=== PATIENT | female | born 1950 | race American Indian/Alaskan Native ===

== ENCOUNTER 2018-01-23 09:32 | Outpatient (CLI) | payer OTHER ==
--- NOTE | 2018-01-23 15:22 | Mammography Report ---
BILATERAL DIGITAL SCREENING MAMMOGRAM with CAD: 01/23/18 09:32:00 CLINICAL: Routine screening. COMPARISON: 11/21/15 FINDINGS: There are bilateral scattered areas of fibroglandular density.No mass, architectural distortion or suspicious calcifications. IMPRESSION: No mammographic evidence of malignancy. BI-RADS CATEGORY: 1 -- Negative RECOMMENDATION: Routine mammographic screening in one year. COMMENT: Patient follow-up letters are generated by our [employer] application.
== END 2018-01-23 09:33 | disposition home or self-care (01) ==
LOC: MAMMO 09:32
PROVIDERS: ATTEND Internal Medicine
DX: Z12.31 Encounter for screening mammogram for malignant neoplasm of breast (principal); I10 Essential (primary) hypertension; I25.10 Atherosclerotic heart disease of native coronary artery without angina pectoris; K21.9 Gastro-esophageal reflux disease without esophagitis; M19.90 Unspecified osteoarthritis, unspecified site; E03.9 Hypothyroidism, unspecified; Z90.49 Acquired absence of other specified parts of digestive tract; Z90.710 Acquired absence of both cervix and uterus; Z90.721 Acquired absence of ovaries, unilateral
CPT/HCPCS: 77067

== ENCOUNTER 2018-11-26 14:23 | Inpatient (IN) | payer OTHER ==
--- NOTE | 2018-11-26 14:37 | Event Note ---
ED Screening Note ED Screening Note: TO ER WITH FAMILY STATING THAT SINCE 0930 PT HAS HAD TROUBLE SPEAKING. LAST NIGHT PT HAD HEADACHE SHE HAD BEEN UP WITH HER NUMEROUS TIMES DURING NIGHT TO URINATE ALL OF THOSE TIMES THE PT WAS HER NORMAL SELF AT 0930 SHE GOT GARBLED SPEECH AND TROUBLE SPEAKING IN TRIAGE SHE HAS L SIDED WEAKNESS KENDAL NOTED ON SHOULDER SHRUG AND POS PRONATOR PT IS IN WHEELCHAIR NO EXPRESSIVE OR RECEPTIVE APHASIA PERRL This initial assessment/diagnostic orders/clinical plan/treatment(s) is/are subject to change based on patients health status, clinical progression and re- assessment by fellow clinical providers in the ED. Further treatment and workup at subsequent clinical providers discretion. Patient/guardian urged not to elope from the ED as their condition may be serious if not clinically assessed and managed. Initial orders include: STROKE ALERT PMH HTN GERD OBESE
--- NOTE | 2018-11-26 15:05 | Cat Scan Report ---
CT head without contrast CLINICAL HISTORY: Cerebrovascular accident FINDINGS: The brain appears to demonstrate appropriate attenuation for age. The ventricular system is within normal limits in size and configuration. There is mild degree of cerebral atrophy. There is n o CT evidence of acute intracranial hemorrhage or significant mass effect. There is incidental small osteoma within the visualized left ethmoid sinus. Otherwise, the visualized paranasal sinuses are clear. All CT scans at this location are performed using the CT dose reduction for [employer] by means of automated exposure control. IMPRESSION: There is no CT evidence of acute intracranial process. The findings were called emergently to the ER physician at the time the study was completed per the c ode stroke protocol. Signer Name: Sheng Sarmiento MD Signed: 11/26/2018 3:01 PM Workstation Name: [id number]
--- NOTE | 2018-11-26 15:10 | Emergency Department Report ---
ED Neuro Deficit HPI - General Chief Complaint: Neuro Symptoms/Deficit Stated Complaint: SLURR SPEECH/HEAD ACHE Time Seen by Provider: 11/26/18 14:30 Source: patient, family Mode of arrival: Wheelchair Limitations: No Limitations - History of Present Illness Initial Comments: [facility] Tele[facility]urology Consult Services DATE: November 26, 2018 Impression: Transient slurred speech dizziness headache-could be migrainous versus transient ischemic attack. The patient does have multiple vascular risk factors. Recommend aspirin therapy and admission for stroke/toxic metabolic workup. Can treat headache with non-vasoactive headache medications. Not a tpa candidate due to: Resolution of symptoms Symptoms (not) consistent with LVO therefore no role for neuro-intervention Differential Diagnosis: Migrainous phenomenon, TIA, toxic metabolic 1. Cardioembolic stroke 2. Small vessel disease/lacune 3. Thromboembolic, syucfs-kk-ushoci mechanism 4. Hypercoagulable state-related infarct 5. Transient ischemic attack 6. Thrombotic mechanism, large artery disease Comments: Last known normal 06:30 Door time 14:23 [facility] contacted: 14:31 [facility] at bedside: 14:34 NIHSS assessment time: 14:40 Recommendations: -Aspirin therapy -Admitted for TIA/stroke workup -Can treat headache with non-vasoactive headache medications Inpatient neurology consultation Inpatient stroke evaluation as per Neurology/ Internal Medicine Discussed with ED MD Please call with questions CC slurred speech headache dizziness History of Present Illness Patient is a 68-year-old woman with a history of prior myocardial infarction, hypertension, asthma, hypothyroidism who doesn't take any antiplatelets and she takes meloxicam and some other medications for osteoarthritis. It sounds like she's had a headache for a day or so and she woke up at 6:30 AM still with a hea dache but went back to bed. She then woke up at 9:30 in the morning and felt dizzy and weak all over and nauseated. She also felt like her speech was slurred. She denies having these symptoms before. She denies any focal weakness numbness or tingling. Diagnostic: CT head without contrast no acute changes Exam: 1a- LOC: Keenly responsive - =0 1b- LOC questions: Answers both questions correctly - 0 1c- LOC commands- Performs both tasks correctly- 0 2- Gaze: Normal; no gaze paresis or gaze deviation - 0 3- Visual Edwards: normal, no Visual field deficit - 0 4- Facial movements: no facial palsy - 0 5- Upper limb motor - no drift -0 6- Lower limb motor - no drift - 0 7- Limb Coordination: absent ataxia - 0 8- Sensory : no sensory loss - 0 9- Language - No aphasia - 0 10- Speech - No dysarthria -0 11- Neglect / Extinction - none found -0 NIHSS score =0 Medical Decision Making: - Extensive number of diagnosis or management options are considered above. - Extensive amount of complex data reviewed. - High risk of complication and/or morbidity or mortality are associated with differential diagnostic considerations above. - There may be Uncertain outcome and increased probability of prolonged functional impairment or high probability of severe prolonged functional impairment associated with some of these differential diagnosis. Medical Data Reviewed: 1.Data reviewed include clinical labs, radiology, Medical Tests; 2.Tests results discussed w/performing or interpreting physician; 3.Obtaining/reviewing old medical records; 4.Obtaining case history from another source; 5.Independent review of image, tracing or specimen. Patient was informed the Neurology Consult would happen via telehealth (remote video) and consented to receiving care in this manner. - Related Data Home Medications: Home Medications Medication Instructions Recorded Confirmed Last Taken Amlodipine Besylate [Norvasc] 10 mg PO DAILY 04/27/13 04/27/13 04/26/13 09:[address] (Nf) [Diclofenac 50 mg PO BID 04/27/13 04/27/13 04/23/13 21:00 Sodium] 50mg Levothyroxine [Synthroid] 112 mcg PO DAILY 04/27/13 04/27/13 04/26/13 09:00 112 mcg Omeprazole [PriLOSEC] 20 mg PO HS 04/27/13 04/27/13 04/26/13 21:30 mg Sertraline HCl 100 mg PO HS 04/27/13 04/27/13 04/26/13 21:00 100mg Vit D3-Vit K/Berberine/Hops 1,000 units PO DAILY 04/27/13 04/27/13 04/26/13 09:00 [Ostera Tablet] 1000units Allergies/Adverse Reactions: Allergies Allergy/AdvReac Type Severity Reaction Status Date / Time lisinopril AdvReac Severe COUGHING Verified 04/27/13 10:02 indomethacin [From Indocin] AdvReac Intermediate IRREGULAR Verified 04/27/13 10:02 HEART RATE indomethacin sodium AdvReac Intermediate IRREGULAR Verified 04/27/13 10:02 [From Indocin] HEART RATE venom-honey bee AdvReac Swelling Verified 04/27/13 10:02 [bee venom (honey bee)] ED Review of Systems ROS: Stated complaint: SLURR SPEECH/HEAD ACHE Other details as noted in HPI ED Past Medical Hx - Past Medical History Previous Medical History?: Yes Hx Hypertension: Yes Hx Heart Attack/AMI: Yes Hx Congestive Heart Failure: No Hx GERD: Yes Hx Renal Disease: Yes Hx Arthritis: Yes Hx HIV: No - Surgical History Past Surgical History?: Yes Hx Cholecystectomy: Yes (2012) - Social History Smoking Status: Never Smoker - Medications Home Medications: Home Medications Medication Instructions Recorded Confirmed Last Taken Type Amlodipine Besylate [Norvasc] 10 mg PO DAILY 04/27/13 04/27/13 04/26/13 09:[address] (Nf) [Diclofenac 50 mg PO BID 04/27/13 04/27/13 04/23/13 21:00 History Sodium] 50mg Levothyroxine [Synthroid] 112 mcg PO DAILY 04/27/13 04/27/13 04/26/13 09:00 History 112 mcg Omeprazole [PriLOSEC] 20 mg PO HS 04/27/13 04/27/13 04/26/13 21:30 History mg Sertraline HCl 100 mg PO HS 04/27/13 04/27/13 04/26/13 21:00 History 100mg Vit D3-Vit K/Berberine/Hops 1,000 units PO DAILY 04/27/13 04/27/13 04/26/13 09:00 History [Ostera Tablet] 1000units ED Neuro Physical Exam - General Limitations: No Limitations Suspected Stroke: Yes - NIHSS Assessment Interval: Baseline 1a. Level of Consciousness: alert/keenly responsive 1b. LOC Questions: answers both correctly 1c. LOC Commands: performs tasks correctly 2. Best Gaze: normal 3. Visual: no visual loss 4. Facial Palsy: normal symmetrical movement 5b. Motor Arm Right: no drift 5a. Motor Arm Left: no drift 6a. Motor Leg Left: no drift 6b. Motor Leg Right: no drift 7. Limb Ataxia: absent 8. Sensory: normal 9. Best Language: no aphasia 10. Dysarthria: normal 11. Extinction/Inattention: no abnormality Total Score: 0 Stroke Severity: No Stroke Symptoms - Lab Data Lab Results 11/26/18 Range/Units 14:34 POC Glucose 69 L (70-105) Critical care attestation.: If time is entered above; I have spent that time in minutes in the direct care of this critically ill patient, excluding procedure time. ED Disposition Clinical Impression: Transient ischemic attack, Shortness of breath on exertion Disposition: OP ADMIT IP TO THIS HOSP Is pt being admited?: Yes Condition: Stable
[2018-11-26] MEDS ORDERED: FIORICET PO ONE (15:21)
--- NOTE | 2018-11-26 15:26 | Emergency Department Report ---
HPI - General Chief Complaint: Neuro Symptoms/Deficit Time Seen by Provider: 11/26/18 14:30 - HPI HPI: Room 22 The patient is a 68-year-old female presenting with chief complaint of difficulty speaking and headache. The patient states she had a diffuse headache last night that has been persistent. The patient states she went to bed last night at midnight with her headache. The patient awakened this morning at 09:30 feeling dizzy and weak. Family's noticed the patient's speech was slurred and she seemed disoriented having difficulty getting some of her words out. Patient denies ever having weakness of any type. Patient admits to nausea and headache. The patient's symptoms of dysarthria lasted approximately 15-20 minutes before resolution Location: [See above] Duration: [See above] Quality: [See above] Severity: [See above] Modifying factors: [see above] Context: [see above] Mode of transportation: [not driving] ED Past Medical Hx - Past Medical History Previous Medical History?: Yes Hx Hypertension: Yes Hx Heart Attack/AMI: Yes Hx GERD: Yes Hx Renal Disease: Yes Hx Arthritis: Yes - Surgical History Past Surgical History?: Yes Hx Cholecystectomy: Yes (2012) - Family History Family history: no significant - Social History Smoking Status: Never Smoker Substance Use Type: Alcohol (occasional) - Medications Home Medications: Home Medications Medication Instructions Recorded Confirmed Last Taken Type Amlodipine Besylate [Norvasc] 10 mg PO DAILY 04/27/13 04/27/13 04/26/13 09:[address] (Nf) [Diclofenac 50 mg PO BID 04/27/13 04/27/13 04/23/13 21:00 History Sodium] 50mg Levothyroxine [Synthroid] 112 mcg PO DAILY 04/27/13 04/27/13 04/26/13 09:00 His tory 112 mcg Omeprazole [PriLOSEC] 20 mg PO HS 04/27/13 04/27/13 04/26/13 21:30 History mg Sertraline HCl 100 mg PO HS 04/27/13 04/27/13 04/26/13 21:00 History 100mg Vit D3-Vit K/Berberine/Hops 1,000 units PO DAILY 04/27/13 04/27/13 04/26/13 09:00 History [Ostera Tablet] 1000units ED Review of Systems ROS: Stated complaint: SLURR SPEECH/HEAD ACHE Other details as noted in HPI Constitutional: no symptoms reported Eyes: denies: eye pain ENT: denies: throat pain Respiratory: no symptoms reported Cardiovascular: denies: chest pain Endocrine: no symptoms reported Gastrointestinal: denies: abdominal pain Genitourinary: denies: dysuria Musculoskeletal: denies: back pain Neurological: headache, confusion. denies: weakness Physical Exam - Physical Exam Vital Signs: Vital Signs 11/26/18 15:17 Temperature 98.6 F Pulse Rate 61 Respiratory 18 Rate Blood Pressure 163/86 Blood Pressure 163/86 [Right] O2 Sat by Pulse 100 Oximetry Physical Exam: GENERAL: The patient is well-developed well-nourished female lying on stretcher not appearing to be in acute distress. [] HEENT: Normocephalic. Atraumatic. Extraocular motions are intact. Patient has moist mucous membranes. NECK: Supple. Trachea midline CHEST/LUNGS: Clear to auscultation. There is no respiratory distress noted. HEART/CARDIOVASCULAR: Regular. There is no tachycardia. There is no gallop rub or murmur. ABDOMEN: Abdomen is soft, nontender. Patient has normal bowel sounds. There is no abdominal distention. SKIN: There is no rash. There is no edema. There is no diaphoresis. NEURO: The patient is awake, alert, and oriented. The patient is cooperative. The patient has no focal neurologic deficits. The patient has normal speech. Cranial nerves II through XII grossly intact, no drift MUSCULOSKELETAL: There is no evidence of acute injury. ED Course Vital Signs 11/26/18 15:17 Temperature 98.6 F Pulse Rate 61 Respiratory 18 Rate Blood Pressure 163/86 Blood Pressure 163/86 [Right] O2 Sat by Pulse 100 Oximetry ED Medical Decision Making - Lab Data Result diagrams: 11/26/18 15:28 11/26/18 15:28 Laboratory Tests 11/26/18 11/26/18 11/26/18 14:34 15:28 15:28 WBC 5.8 RBC 4.28 Hgb 12.3 Hct 37.5 MCV 88 MCH 29 MCHC 33 RDW 14.2 Plt Count 358 Lymph % (Auto) 27.5 [place] % (Auto) 8.2 H Eos % (Auto) 1.3 Baso % (Auto) 2.2 H Lymph # 1.6 [place] # 0.5 Eos # 0.1 Baso # 0.1 Seg Neutrophils % 60.8 Seg Neutrophils # 3.5 PT INR APTT Thrombin Time Sodium 142 Potassium 3.7 Chloride 106.3 Carbon Dioxide 24 Anion Gap 15 BUN 11 Creatinine 0.8 Estimated GFR > 60 BUN/Creatinine Ratio 14 Glucose 91 POC Glucose 69 L Calcium 9.1 Total Bilirubin 0.30 AST 14 ALT 12 Alkaline Phosphatase 124 CK-MB (CK-2) Troponin T Total Protein 7.9 Albumin 3.9 Albumin/Globulin Ratio 1.0 11/26/18 11/26/18 15:35 15:35 WBC RBC Hgb Hct MCV MCH MCHC RDW Plt Count Lymph % (Auto) [place] % (Auto) Eos % (Auto) Baso % (Auto) Lymph # [place] # Eos # Baso # Seg Neutrophils % Seg Neutrophils # PT 13.0 INR 1.01 APTT 28.8 Thrombin Time 16.5 Sodium Potassium Chloride Carbon Dioxide Anion Gap BUN Creatinine Estimated GFR BUN/Creatinine Ratio Glucose POC Glucose Calcium Total Bilirubin AST ALT Alkaline Phosphatase CK-MB (CK-2) 1.3 Troponin T < 0.010 Total Protein Albumin Albumin/Globulin Ratio - EKG Data -: EKG Interpreted by Mn EKG shows normal: sinus rhythm Rate: normal - EKG Data When compared to previous EKG there are: previous EKG unavailable Interpretation: nonspecific ST-T wave orestes (T-wave inversion in lead 3) - Radiology Data Radiology results: report reviewed (CT head), image reviewed (CT head) [facility] [address] [place] [address] Cat Scan Report Signed Patient: KAY GARCIA MR# : [id number] : 1950 Acct:[id number] Age/Sex: 68 / F ADM Date: 11/26/18 Loc: ED Attending Dr: Ordering Physician: MARY DESAI Date of Service: 11/26/18 Procedure(s): CT head/brain wo con Accession Number(s): [id number] cc: MARY DESAI CT head without contrast CLINICAL HISTORY: Cerebrovascular accident FINDINGS: The brain appears to demonstrate appropriate attenuation for age. The ventricular system is within normal limits in size and configuration. There is mild degree of cerebral atrophy. There is no CT evidence of acute intracranial hemorrhage or significant mass effect. There is incidental small osteoma within the visualized left ethmoid sinus. Otherwise, the visualized paranasal sinuses are clear. All CT scans at this location are performed using the CT dose reduction for ALARA by means of automated exposure control. IMPRESSION: There is no CT evidence of acute intracranial process. The findings were called emergently to the ER physician at the time the study was completed per the code stroke protocol. Signer Name: Sheng Sarmiento MD Signed: 11/26/2018 3:01 PM Workstation Name: [employer] [id number] Transcribed By: MR Dictated By: Sheng Sarmiento MD Electronically Authenticated By: Sheng Sarmiento MD Signed Date/Time: 11/26/18 1501 DD/ 1451 TD/TT: - Differential Diagnosis TIA, CVA, complex migraine Critical care attestation.: If time is entered above; I have spent that time in minutes in the direct care of this critically ill patient, excluding procedure time. ED Disposition Clinical Impression: Transient ischemic attack, Shortness of breath on exertion Disposition: - OP ADMIT IP TO THIS HOSP Is pt being admited?: Yes Does the pt Need Aspirin: No Condition: Fair Time of Disposition: 16:25 (hospitalist notified (Dr Johnson))
[2018-11-26] MEDS ORDERED: PLAVIX PO ONE (15:34)
[2018-11-26 15:54] LABS: Basophils # (Auto) 0.1 K/mm3 (0.0-0.1); Basophils % (Auto) 2.2 % (0.0-1.8); Eosinophils # (Auto) 0.1 K/mm3 (0.0-0.4); Eosinophils % (Auto) 1.3 % (0.0-4.3); Hematocrit 37.5 % (30.3-42.9); Hemoglobin 12.3 gm/dl (10.1-14.3); Lymphocytes # (Auto) 1.6 K/mm3 (1.2-5.4); Lymphocytes % (Auto) 27.5 % (13.4-35.0); Mean Corpuscular HGB Conc 33 % (30-34); Mean Corpuscular Volume 88 fl (79-97); Monocytes # (Auto) 0.5 K/mm3 (0.0-0.8); Monocytes % (Auto) 8.2 % (0.0-7.3); Platelet Count 358 K/mm3 (140-440); Red Blood Count 4.28 M/mm3 (3.65-5.03); Red Cell Distribution Width 14.2 % (13.2-15.2)
[2018-11-26 16:05] LABS: INR 1.01 (0.87-1.13)
[2018-11-26 16:06] LABS: Partial Thromboplastin Time 28.8 Sec. (24.2-36.6); Thrombin Time 16.5 Sec. (15.1-19.6)
[2018-11-26 16:20] LABS: Creatine Kinase MB 1.3 ng/mL (0.0-4.0)
[2018-11-26 16:21] LABS: Alanine Aminotransferase 12 units/L (7-56); Albumin 3.9 g/dL (3.9-5); BUN/Creatinine Ratio 14; Blood Urea Nitrogen 11 mg/dL (7-17); Calcium 9.1 mg/dL (8.4-10.2); Hemolysis Index 3
[2018-11-26 16:25] LABS: Bilirubin,Direct < 0.2 mg/dL (0-0.2)
--- NOTE | 2018-11-26 16:30 | Consultation ---
History of Present Illness Consult date: 11/26/18 Medications and Allergies Allergies Allergy/AdvReac Type Severity Reaction Status Date / Time lisinopril AdvReac Severe COUGHING Verified 04/27/13 10:02 indomethacin [From Indocin] AdvReac Intermediate IRREGULAR Verified 04/27/13 10:02 HEART RATE indomethacin sodium AdvReac Intermediate IRREGULAR Verified 04/27/13 10:02 [From Indocin] HEART RATE venom-honey bee AdvReac Swelling Verified 04/27/13 10:02 [bee venom (honey bee)] Home Medications Medication Instructions Recorded Confirmed Last Taken Type Amlodipine Besylate [Norvasc] 10 mg PO DAILY 04/27/13 04/27/13 04/26/13 09:[address] (Nf) [Diclofenac 50 mg PO BID 04/27/13 04/27/13 04/23/13 21:00 History Sodium] 50mg Levothyroxine [Synthroid] 112 mcg PO DAILY 04/27/13 04/27/13 04/26/13 09:00 Hi story 112 mcg Omeprazole [PriLOSEC] 20 mg PO HS 04/27/13 04/27/13 04/26/13 21:30 History mg Sertraline HCl 100 mg PO HS 04/27/13 04/27/13 04/26/13 21:00 History 100mg Vit D3-Vit K/Berberine/Hops 1,000 units PO DAILY 04/27/13 04/27/13 04/26/13 09:00 History [Ostera Tablet] 1000units Physical Examination Vital Signs Pulse Ox 100 11/26/18 14:48 Results 11/26/18 15:28 11/26/18 15:28 Cardiac Enzymes 11/26/18 11/26/18 Range/Units 15:28 15:35 AST 14 (5-40) units/L CK-MB (CK-2) 1.3 (0.0-4.0) ng/mL Coagulation 11/26/18 Range/Units 15:35 PT 13.0 (12.2-14.9) Sec. INR 1.01 (0.87-1.13) APTT 28.8 (24.2-36.6) Sec. CBC 11/26/18 Range/Units 15:28 WBC 5.8 (4.5-11.0) K/mm3 RBC 4.28 (3.65-5.03) M/mm3 Hgb 12.3 (10.1-14.3) gm/dl Hct 37.5 (30.3-42.9) % Plt Count 358 (140-440) K/mm3 Lymph # 1.6 (1.2-5.4) K/mm3 Wright # 0.5 (0.0-0.8) K/mm3 Eos # 0.1 (0.0-0.4) K/mm3 Baso # 0.1 (0.0-0.1) K/mm3 Comprehensive Metabolic Panel 11/26/18 Range/Units 15:28 Sodium 142 (137-145) mmol/L Potassium 3.7 (3.6-5.0) mmol/L Chloride 106.3 (98-107) mmol/L Carbon Dioxide 24 (22-30) mmol/L BUN 11 (7-17) mg/dL Creatinine 0.8 (0.7-1.2) mg/dL Glucose 91 (65-100) mg/dL Calcium 9.1 (8.4-10.2) mg/dL Direct Bilirubin < 0.2 (0-0.2) mg/dL Indirect Bilirubin 0.1 mg/dL AST 14 (5-40) units/L ALT 12 (7-56) units/L Alkaline Phosphatase 124 (35-129) units/L Total Protein 7.9 (6.3-8.2) g/dL Albumin 3.9 (3.9-5) g/dL
[2018-11-26 18:27] LABS: Bilirubin,Urine NEG (Negative); Blood,Urine NEG (Negative); Color,Urine Straw (Yellow); Protein,Urine <15 mg/dL mg/dL (Negative); Urobilinogen,Urine < 2.0 mg/dL (<2.0); WBC,Urine < 1.0 /HPF (0.0-6.0)
--- NOTE | 2018-11-26 18:35 | Consultation ---
History of Present Illness Consult date: 11/26/18 Requesting physician: MARK KELLEY Consult reason: hypertension, other (TIA) History of present illness: The patient is well-known to me from the office. She has a history of chronic atypical chest pain with no significant CAD on coronary angiography in the past. This morning, she claims that she woke up with headache, nausea and dizziness. When her son showed up, he observed that the patient's speech was slurred and that she was confused. The patient claims that since her had an appointment at my office today, she decided not to go to the emergency department. She went to sleep for about 45 minutes, only to wake up with continuing headache. She then proceeded to accompany to my office. Aft er waking up, her speech had improved. At my office this afternoon, she started experiencing nausea and vomiting with persistent headache. Her blood pressure was 160/100 mmHg. At that point, she was sent to the emergency department. She denies chest pain, palpitations, or blurring of vision. She has chronic exertional dyspnea which is noncardiac in origin. Past History Past Medical History: acute ND, arthritis (C-spine), hypertension, hyperlipidemia, other (TIA, JAVIER, No significant CAD on cath. EF: 55-60% on echo 02/27.) Past Surgical History: hysterectomy Social history: denies: smoking, alcohol abuse Family history: denies: CAD Medications and Allergies Allergies Allergy/AdvReac Type Severity Reaction Status Date / Time lisinopril AdvReac Severe COUGHING Verified 04/27/13 10:02 indomethacin [From Indocin] AdvReac Intermediate IRREGULAR Verified 04/27/13 10:02 HEART RATE indomethacin sodium AdvReac Intermediate IRREGULAR Verified 04/27/13 10:02 [From Indocin] HEART RATE venom-honey bee AdvReac Swelling Verified 04/27/13 10:02 [bee venom (honey bee)] Home Medications Medication Instructions Recorded Confirmed Last Taken Type Amlodipine Besylate [Norvasc] 10 mg PO DAILY 04/27/13 11/26/18 04/26/13 09:00 History 10mg Levothyroxine [Synthroid] 112 mcg PO DAILY 04/27/13 11/26/18 04/26/13 09:00 History 112 mcg Omeprazole [PriLOSEC] 20 mg PO QDAY 04/27/13 11/26/1804/26/13 21:30 History mg Sertraline HCl 100 mg PO QDAY 04/27/13 11/26/18 04/26/13 21:00 History 100mg ALBUTEROL Inhaler (OR & NICU) 2 puff IH QID PRN 11/26/18 11/26/18 Unknown History [Proair] Cetirizine HCl [Zyrtec 10mg tab] 10 mg PO QDAY 11/26/18 11/26/18 Unknown History Cholecalciferol Vit D3 [Vitamin D3 1,000 unit PO QDAY 11/26/18 11/26/18 Unknown History 1,000 UNIT TAB] EPINEPHrine [Epipen 2-Jonathan] 1 syr IM PRN PRN 11/26/18 11/26/18 Unknown History Fluticasone [Flonase] 1 spray NS QDAY 11/26/18 11/26/18 Unknown History Meloxicam [Mobic] 15 mg PO DAILY 11/26/18 11/26/18 Unknown History Nitroglycerin [Nitrostat] 0.4 mg SL Q5M PRN 11/26/18 11/26/18 Unknown History Review of Systems Constitutional: no fever, no chills Ears, nose, mouth and throat: no ear pain, no ear discharge, no sore throat Cardiovascular: lightheadedness, no chest pain, no palpitations, no shortness of breath Respiratory: dyspnea on exertion, no cough, no hemoptysis Gastrointestinal: nausea, vomiting, no abdominal pain, no diarrhea, no constipation Genitourinary Female: no dysuria, no urinary frequency Rectal: no pain, no bleeding Musculoskeletal: no neck stiffness, no neck pain, no myalgias Integumentary: no rash, no pruritis Neurological: headaches, change in speech, confusion, no weakness, no parathesias Endocrine: no cold intolerance, no heat intolerance Hematologic/Lymphatic: no easy bruising, no easy bleeding Allergic/Immunologic: no urticaria, no wheezing Physical Examination Vital Signs Last Vital Signs Temp 98.6 F 11/26/18 15:17 Pulse 59 L 11/26/18 18:01 Resp 17 11/26/18 18:01 BP 136/64 11/26/18 18:01 Pulse Ox 96 11/26/18 18:01 General appearance: no acute distress HEENT: Positive: EOMI, Mucus Membranes Moist Neck: Positive: neck supple, trachea midline Cardiac: Positive: Reg Rate and Rhythm, S1/S2 Lungs: Positive: clear to auscultation Neuro: Positive: Grossly Intact Abdomen: Positive: Soft, Active Bowel Sounds. Negative: Tender Skin: Positive: Clear. Negative: Rash Musculoskeletal: Normal Range of Motion Extremities: Present: normal. Absent: edema Results 11/26/18 15:28 11/26/18 15:28 Cardiac Enzymes 11/26/18 11/26/18 Range/Units 15:28 15:35 AST 14 (5-40) units/L CK-MB (CK-2) 1.3 (0.0-4.0) ng/mL Coagulation 11/26/18 Range/Units 15:35 PT 13.0 (12.2-14.9) Sec. INR 1.01 (0.87-1.13) APTT 28.8 (24.2-36.6) Sec. CBC 11/26/18 Range/Units 15:28 WBC 5.8 (4.5-11.0) K/mm3 RBC 4.28 (3.65-5.03) M/mm3 Hgb 12.3 (10.1-14.3) gm/dl Hct 37.5 (30.3-42.9) % Plt Count 358 (140-440) K/mm3 Lymph # 1.6 (1.2-5.4) K/mm3 [place] # 0.5 (0.0-0.8) K/mm3 Eos # 0.1 (0.0-0.4) K/mm3 Baso # 0.1 (0.0-0.1) K/mm3 Comprehensive Metabolic Panel 11/26/18 Range/Units 15:28 Sodium 142 (137-145) mmol/L Potassium 3.7 (3.6-5.0) mmol/L Chloride 106.3 (98-107) mmol/L Carbon Dioxide 24 (22-30) mmol/L BUN 11 (7-17) mg/dL Creatinine 0.8 (0.7-1.2) mg/dL Glucose 91 (65-100) mg/dL Calcium 9.1 (8.4-10.2) mg/dL Direct Bilirubin < 0.2 (0-0.2) mg/dL Indirect Bilirubin 0.1 mg/dL AST 14 (5-40) units/L ALT 12 (7-56) units/L Alkaline Phosphatase 124 (35-129) units/L Total Protein 7.9 (6.3-8.2) g/dL Albumin 3.9 (3.9-5) g/dL - Imaging and Cardiology EKG: pending Assessment and Plan Resume her usual antihypertensive medications. Her cardiac status appears stable at this time. - Patient Problems (1) TIA (transient ischemic attack) Current Visit: Yes Status: Acute (2) Hypertension Current Visit: Yes Status: Chronic Qualifiers: Hypertension type: essential hypertension Qualified Code(s): I10 - Essential (primary) hypertension (3) Headache Current Visit: Yes Status: Acute (4) Nausea & vomiting Current Visit: Yes Status: Acute (5) Exertional dyspnea Current Visit: Yes Status: Chronic (6) JAVIER (obstructive sleep apnea) Current Visit: Yes Status: Chronic (7) Normal coronary arteries Current Visit: Yes Status: Chronic (8) Morbid obesity Current Visit: Yes Status: Chronic
[2018-11-26] MEDS ORDERED: PROVENTIL IH PRN (21:15)
[2018-11-26] MEDS ORDERED: TYLENOL #3 PO PRN (21:15)
[2018-11-27] MEDS ORDERED: ZOFRAN IV PRN (00:25)
[2018-11-27] MEDS ORDERED: IBUPROFEN PO PRN (00:25)
[2018-11-27] MEDS ORDERED: TYLENOL PO PRN (00:25)
[2018-11-27] MEDS ORDERED: SODIUM CHLORIDE FLUSH SYRINGE 10 ML IV PRN ×2 (00:25→00:26)
[2018-11-27] MEDS ORDERED: DILAUDID IV PRN (00:25)
--- NOTE | 2018-11-27 02:23 | Event Note ---
Date: 11/26/18 See H/p in reports TIA Htn HLD
--- NOTE | 2018-11-27 03:13 | History and Physical Report ---
CHIEF COMPLAINT: Slurring of speech and headache since morning. HISTORY OF PRESENT ILLNESS: A 68-year-old -[place] female with history of hypertension, coronary artery disease, GERD, renal insufficiency and arthritis, comes in for difficulty speaking since 6:00 a.m. This has nearly resolved. No weakness in the upper extremities and lower extremities. Slurred speech for a couple of hours. Never happened before. No shortness of breath, no chest pain. No exacerbating or relieving factors. PAST MEDICAL HISTORY: Significant for hypertension, coronary artery disease, GERD, renal disease, and arthritis. PAST SURGICAL HISTORY: Cholecystectomy. FAMILY HISTORY: Hypertension. SOCIAL HISTORY: Does not smoke, no alcohol, no recreational drugs. PHYSICAL EXAMINATION: GENERAL: Elderly female, cooperative during the examination. VITAL SIGNS: Blood pressure is 100/46, temperature is 98.3, pulse is 76, respirations are 20. HEENT: Unremarkable. Pupils equal and reactive. NECK: Supple, no lymphadenopathy, no thyromegaly. LUNGS: Clear to auscultation and percussion. Good air entry. CARDIOVASCULAR: S1, S2 heard. No gallop, no murmur, no rub. Apical impulse in left fifth intercostal space and midclavicular line. Hernial orifices are normal. EXTREMITIES: Good pedal pulses. No pedal edema. CENTRAL NERVOUS SYSTEM: Alert and oriented x 4. There was no dysarthria at present. I believe there is a history of dysarthria from the patient. Otherwise nonfocal exam. Four ____ extremities are normal in strength. We will continue aspirin. LABORATORY DATA: Significant for normal CBC, normal electrolytes. Urine normal. EKG shows normal sinus rhythm, heart rate of 80 per minute and nonspecific ST-T wave changes. CT head, no clear evidence of acute headache, intracranial hemorrhage, etc. ASSESSMENT AND PLAN: 1. Transient ischemic attack. The patient fits the criteria of transient ischemic attack. The patient has slurred speech and some weakness on the left side, which has resolved completely. Transient ischemic attack workup in the form of MRI, MRA and carotid duplex scan, and echocardiogram. No Lexiscan was ordered. 2. Hypertension. Continue antihypertensives including amlodipine. 3. Hypothyroidism. Check TSH. Continue levothyroxine. 4. Allergic rhinitis. Continue Zyrtec. 5. Chronic obstructive pulmonary disease. Continue albuterol treatments. 6. Gastroesophageal reflux disease. Continue omeprazole. 7. Deep venous thrombosis prophylaxis, Lovenox 40 mg subcutaneous daily. In summary, the patient has TIA workup including MRI, MRA, carotid duplex scan, and echocardiogram. Otherwise, her vitals and all other signs are stable. JOB# [id number] JARETH/NTS
[2018-11-27] MEDS: SYNTHROID PO SCH (05:27)
[2018-11-27] MEDS ORDERED: NORVASC PO ONE (08:00)
--- NOTE | 2018-11-27 09:22 | Progress Note ---
Assessment and Plan Assessment and plan: (1) TIA (transient ischemic attack) Current Visit: Yes Status: Acute Workup so far; CT head without contrast; no acute abnormality noted Carotid Doppler no hemodynamically significant stenosis MRA; no significant abnormality noted MRI; no acute abnormality Echocardiogram; pending Aspirin and Plavix Physical therapy occupational therapy (2) Hypertension Current Visit: Yes Status: Chronic Moderate control, continue current antihypertensives When necessary medications (3) Headache Current Visit: Yes Status: Acute Symptomatic management, neuro workup negative Following neurology evaluation and recommendations (4) Nausea & vomiting Current Visit: Yes Status: Acute Antiemetics and supportive care (5) Exertional dyspnea Current Visit: Yes Status: Chronic (6) JAVIER (obstructive sleep apnea) Current Visit: Yes Status: Chronic (7) Normal coronary arteries Current Visit: Yes Status: Chronic (8) Morbid obesity Current Visit: Yes Status: Chronic History Interval history: Patient seen and examined medical records reviewed Patient's speech is clear, no focal deficits Alert awake oriented Neuro workup negative so far Vital signs noted Hospitalist Physical - Constitutional Vitals: Temp Pulse Resp BP Pulse Ox 97.7 F 56 L 16 98/24 99 11/27/18 07:52 11/27/18 08:13 11/27/18 07:52 11/27/18 08:13 11/27/18 07:52 General appearance: Present: no acute distress, well-nourished, obese - EENT Eyes: Present: PERRL, EOM intact - Neck Neck: Present: supple, normal ROM - Respiratory Respiratory effort: normal Respiratory: bilateral: diminished, negative: rales, rhonchi, wheezing - Cardiovascular Rhythm: regular Heart Sounds: Present: S1 & S2 - Extremities Extremities: no ischemia, No edema - Abdominal General gastrointestinal: soft, non-tender, non-distended, normal bowel sounds - Integumentary Integumentary: Present: clear, warm - Psychiatric Psychiatric: appropriate mood/affect, cooperative - Neurologic Neurologic: CNII-XII intact, moves all extremities Results - Labs CBC & Chem 7: 11/26/18 15:28 11/26/18 15:28 Labs: Laboratory Last Values WBC 5.8 K/mm3 (4.5-11.0) 11/26/18 15:28 RBC 4.28 M/mm3 (3.65-5.03) 11/26/18 15:28 Hgb 12.3 gm/dl (10.1-14.3) 11/26/18 15:28 Hct 37.5 % (30.3-42.9) 11/26/18 15:28 MCV 88 fl (79-97) 11/26/18 15:28 MCH 29 pg (28-32) 11/26/18 15:28 MCHC 33 % (30-34) 11/26/18 15:28 RDW 14.2 % (13.2-15.2) 11/26/18 15:28 Plt Count 358 K/mm3 (140-440) 11/26/18 15:28 Lymph % (Auto) 27.5 % (13.4-35.0) 11/26/18 15:28 Gem % (Auto) 8.2 % (0.0-7.3) H 11/26/18 15:28 Eos % (Auto) 1.3 % (0.0-4.3) 11/26/18 15:28 Baso % (Auto) 2.2 % (0.0-1.8) H 11/26/18 15:28 Lymph # 1.6 K/mm3 (1.2-5.4) 11/26/18 15:28 Gem # 0.5 K/mm3 (0.0-0.8) 11/26/18 15:28 Eos # 0.1 K/mm3 (0.0-0.4) 11/26/18 15:28 Baso # 0.1 K/mm3 (0.0-0.1) 11/26/18 15:28 Seg Neutrophils % 60.8 % (40.0-70.0) 11/26/18 15:28 Seg Neutrophils # 3.5 K/mm3 (1.8-7.7) 11/26/18 15:28 PT 13.0 Sec. (12.2-14.9) 11/26/18 15:35 INR 1.01 (0.87-1.13) 11/26/18 15:35 APTT 28.8 Sec. (24.2-36.6) 11/26/18 15:35 16.5 Sec. (15.1-19.6) 11/26/18 15:35 Sodium 142 mmol/L (137-145) 11/26/18 15:28 Potassium 3.7 mmol/L (3.6-5.0) 11/26/18 15:28 Chloride 106.3 mmol/L (98-107) 11/26/18 15:28 Carbon Dioxide 24 mmol/L (22-30) 11/26/18 15:28 15 mmol/L 11/26/18 15:28 BUN 11 mg/dL (7-17) 11/26/18 15:28 0.8 mg/dL (0.7-1.2) 11/26/18 15:28 Estimated GFR > 60 ml/min 11/26/18 15:28 14 % 11/26/18 15:28 Glucose 91 mg/dL (65-100) 11/26/18 15:28 POC Glucose 97 (70-105) 11/27/18 07:26 5.6 % (4-6) 11/27/18 02:04 Calcium 9.1 mg/dL (8.4-10.2) 11/26/18 15:28 0.30 mg/dL (0.1-1.2) 11/26/18 15:28 < 0.2 mg/dL (0-0.2) 11/26/18 15:28 0.1 mg/dL 11/26/18 15:28 AST 14 units/L (5-40) 11/26/18 15:28 ALT 12 units/L (7-56) 11/26/18 15:28 124 units/L (35-129) 11/26/18 15:28 117 units/L (30-135) 11/26/18 15:35 CK-MB (CK-2) 1.3 ng/mL (0.0-4.0) 11/26/18 15:35 CK-MB (CK-2) Rel Index 1.1 (0-4) 11/26/18 15:35 < 0.010 ng/mL (0.00-0.029) 11/26/18 17:21 7.9 g/dL (6.3-8.2) 11/26/18 15:28 3.9 g/dL (3.9-5) 11/26/18 15:28 1.0 % 11/26/18 15:28 Straw (Yellow) 11/26/18 17:18 Clear (Clear) 11/26/18 17:18 6.0 (5.0-7.0) 11/26/18 17:18 Ur Specific [place] 1.012 (1.003-1.030) 11/26/18 17:18 <15 mg/dl mg/dL (Negative) 11/26/18 17:18 Neg mg/dL (Negative) 11/26/18 17:18 Neg mg/dL (Negative) 11/26/18 17:18 Neg (Negative) 11/26/18 17:18 Neg (Negative) 11/26/18 17:18 Neg (Negative) 11/26/18 17:18 < 2.0 mg/dL (<2.0) 11/26/18 17:18 Ur Leukocyte Esterase Neg (Negative) 11/26/18 17:18 < 1.0 /HPF (0.0-6.0) 11/26/18 17:18 1.0 /HPF (0.0-6.0) 11/26/18 17:18 U Epithel Cells (Auto) 1.0 /HPF (0-13.0) 11/26/18 17:18 Active Medications - Current Medications Current Medications: Generic Name Dose Route Start Last Admin Trade Name Freq PRN Reason Stop Dose Admin Acetaminophen 650 mg 11/27/18 00:25 Tylenol PO Q4H PRN Pain MILD(1-3)/Fever >100.5/WALLACE Acetaminophen/Codeine Phosphate 1 tab 11/26/18 21:15 11/26/18 22:15 Tylenol #3 PO 1 tab Q6H PRN Administration Pain, Moderate (4-6) Albuterol 2.5 mg 11/26/18 21:15 Proventil IH Q4HRT PRN Shortness Of Breath Amlodipine Besylate 10 mg 11/27/18 10:00 Norvasc PO DAILY MILTON Cholecalciferol 1,000 unit 11/27/18 10:00 Vitamin D3 PO QDAY [place] Famotidine 20 mg 11/27/18 10:00 Pepcid PO BID [place] Fluticasone Propionate 50 mcg 11/27/18 10:00 Flonase NS QDAY [place] Hydromorphone HCl 0.5 mg 11/27/18 00:25 Dilaudid IV Q3H PRN Pain , Severe (7-10) Ibuprofen 600 mg 11/27/18 00:25 Ibuprofen PO Q6H PRN Pain, Mild (1-3) Isosorbide Mononitrate 30 mg 11/27/18 10:00 Imdur PO QDAY COUNTS INCLUDE 234 BEDS AT THE [facility] Levothyroxine Sodium 112 mcg 11/27/18 06:00 11/27/18 05:27 Synthroid PO 112 mcg DAILY@0600 COUNTS INCLUDE 234 BEDS AT THE [facility] Administration Loratadine 10 mg 11/27/18 10:00 Claritin PO DAILY COUNTS INCLUDE 234 BEDS AT THE [facility] Meloxicam 15 mg 11/27/18 10:00 Mobic PO DAILY COUNTS INCLUDE 234 BEDS AT THE [facility] Ondansetron HCl 4 mg 11/27/18 00:25 Zofran IV Q8H PRN Nausea And Vomiting Pantoprazole Sodium 20 mg 11/27/18 10:00 Protonix PO QDAY COUNTS INCLUDE 234 BEDS AT THE [facility] Sertraline HCl 100 mg 11/27/18 10:00 Zoloft PO QDAY COUNTS INCLUDE 234 BEDS AT THE [facility] Sodium Chloride 10 ml 11/27/18 10:00 Sodium Chloride Flush Syringe 10 Ml IV BID COUNTS INCLUDE 234 BEDS AT THE [facility] Sodium Chloride 10 ml 11/27/18 00:25 Sodium Chloride Flush Syringe 10 Ml IV PRN PRN LINE FLUSH
[2018-11-27] MEDS ORDERED: NACL 0.9% 250ML 250 ML IV ONE (09:23)
[2018-11-27] MEDS ORDERED: NORVASC PO SCH (10:00)
[2018-11-27] MEDS: FLONASE NS SCH (11:45)
[2018-11-27] MEDS: CLARITIN PO SCH (11:46)
[2018-11-27] MEDS: MOBIC PO SCH (11:46)
[2018-11-27] MEDS: VITAMIN D3 PO SCH (11:46)
[2018-11-27] MEDS: ZOLOFT PO SCH (11:46)
[2018-11-27] MEDS: PEPCID PO SCH ×2 (11:47→22:16)
[2018-11-27] MEDS: SODIUM CHLORIDE FLUSH SYRINGE 10 ML IV SCH ×2 (11:48→22:15)
[2018-11-27] MEDS: IMDUR PO SCH (11:49)
[2018-11-27] MEDS: PROTONIX PO SCH (11:50)
--- NOTE | 2018-11-27 13:01 | Vascular Lab Report ---
BILATERAL CAROTID DOPPLER ULTRASOUND INDICATION : stroke TECHNIQUE: Grayscale and color Doppler imaging performed through the neck. COMPARISON: None FINDINGS: Right: There is mild partially calcified plaque in the right carotid bulb.. Peak systolic velocity in the CCA is 84 cm/s with end-diastolic velocity of 92 cm/s. Peak systolic velocity in the proximal ICA is 85 cm/s with end-diastolic velocity of 25 cm/s. ICA to CCA ratio is less than 2. There is ante grade flow in the ECA and the vertebral artery. Left: There is minimal smooth noncalcified plaque in the left carotid bulb. Peak systolic velocity in the CCA is 72 cm/s with end-diastolic velocity of 15 cm/s. Peak systolic velocity in the proximal IC A is 72 cm/s with end-diastolic velocity of 26 cm/s. ICA to CCA ratio is less than 2. There is antegr radha flow in the ECA and the vertebral artery. IMPRESSION: No hemodynamically significant stenosis by NASCET criteria. Signer Name: Wm Britton Jr, MD Signed: 11/27/2018 12:57 PM Workstation Name: [id number]
--- NOTE | 2018-11-27 13:13 | Magnetic Resonance Report ---
MRI BRAIN 11/27/2018 INDICATION / CLINICAL INFORMATION: stroke. Left-sided weakness. Speech disturbance. TECHNIQUE: Multiplanar, multisequence MR images of the brain were obtained. COMPARISON: CT brain 11/26/2018 FINDINGS: BRAIN / INTRACRANIAL CONTENTS: Unenhanced MR images of the brain demonstrate no evidence of acute abn ormality. Ventricles and sulci are normal in size and shape for a patient of this age. There is no evidence of acute ischemic injury, demyelination, hemorrhage, or mass. The brain parenchy ma is well preserved for age. There are no abnormal extra-axial fluid collections. EXTRACRANIAL: Unremarkable CRANIOCERVICAL JUNCTION: No significant abnormality. VASCULAR FLOW-VOIDS: No significant abnormality. IMPRESSION: No acute abnormality. Essentially negative unenhanced MRI of the brain. Signer Name: Juan Bowens MD Signed: 11/27/2018 1:09 PM Workstation Name: [id number]
--- NOTE | 2018-11-27 13:15 | Magnetic Resonance Report ---
MRA HEAD 11/27/2018 INDICATION / CLINICAL INFORMATION: stroke. Left-sided weakness. Speech disturbance. TECHNIQUE: Routine MRA of the head is performed. 3-D/MIP reformats postprocessed. COMPARISON: None available. FINDINGS: MRA HEAD: Intracranial internal carotid arteries: No significant abnormality. Anterior cerebral arteries: No significant abnormality. Middle cerebral arteries: No significant abnormality. Intracranial vertebral arteries: No significant abnormality. Basilar artery: No significant abnormality. Posterior cerebral arteries: No significant abnormality. IMPRESSION: Negative exam. Signer Name: Juan Bowens MD Signed: 11/27/2018 1:11 PM Workstation Name: [id number]
[2018-11-27] MEDS ORDERED: ASPIRIN PO ONE (16:41)
--- NOTE | 2018-11-27 17:16 | Progress Note ---
Assessment and Plan Will reduce dose of Amlodipine due to lower BPs today. Otherwise, stable cardiac status. - Patient Problems (1) TIA (transient ischemic attack) Current Visit: Yes Status: Acute (2) Hypertension Current Visit: Yes Status: Chronic Qualifiers: Qualified Code(s): I10 - Essential (primary) hypertension (3) Headache Current Visit: Yes Status: Acute (4) Nausea & vomiting Current Visit: Yes Status: Acute (5) Exertional dyspnea Current Visit: Yes Status: Chronic (6) JAVIER (obstructive sleep apnea) Current Visit: Yes Status: Chronic (7) Normal coronary arteries Current Visit: Yes Status: Chronic (8) Morbid obesity Current Visit: Yes Status: Chronic Subjective Date of service: 11/27/18 Principal diagnosis: TIA, WALLACE, N/V, HTN, Interval history: No complaint today. Neuro-imaging studies are negative. Objective Vital Signs Last Vital Signs Temp 97.9 F 11/27/18 16:02 Pulse 62 11/27/18 16:02 Resp 18 11/27/18 16:02 BP 123/52 11/27/18 16:02 Pulse Ox 97 11/27/18 16:02 - Physical Examination General: No Apparent Distress HEENT: Positive: EOMI, Normocephaly, Mucus Membranes Moist Neck: Positive: neck supple, trachea midline Cardiac: Positive: Reg Rate and Rhythm, S1/S2 Lungs: Positive: clear to auscultation Neuro: Positive: Grossly Intact Abdomen: Positive: Soft, Active Bowel Sounds. Negative: Tender Skin: Positive: Clear. Negative: Rash Musculoskeletal: Normal Range of Motion Extremities: Present: normal. Absent: edema - Imaging and Cardiology EKG: pending - Telemetry EKG Rhythm: Sinus Rhythm
--- NOTE | 2018-11-27 17:31 | Consultation ---
History of Present Illness Consult date: 11/27/18 Chief complaint: slurred speech History of present illness: This is a 68 YO F who presented with acute onset of slurred speech , all but resolved in ED. Not taking aspirin at home. Currently at baseline. Past History Past Medical History: acute TN, arthritis (C-spine), hypertension, hyperlipidemia, other (TIA, JAVIER, No significant CAD on cath. EF: 55-60% on echo 02/27.) Past Surgical History: hysterectomy Social history: denies: smoking, alcohol abuse Family history: denies: CAD Medications and Allergies Allergies Allergy/AdvReac Type Severity Reaction Status Date / Time lisinopril AdvReac Severe COUGHING Verified 04/27/13 10:02 indomethacin [From Indocin] AdvReac Intermediate IRREGULAR Verified 04/27/13 10:02 HEART RATE indomethacin sodium AdvReac Intermediate IRREGULAR Verified 04/27/13 10:02 [From Indocin] HEART RATE venom-honey bee AdvReac Swelling Verified 04/27/13 10:02 [bee venom (honey bee)] Home Medications Medication Instructions Recorded Confirmed Last Taken Type Amlodipine Besylate [Norvasc] 10 mg PO DAILY 04/27/13 11/26/18 04/26/13 09:00 History 10mg Levothyroxine [Synthroid] 112 mcg PO DAILY 04/27/13 11/26/18 04/26/13 09:00 History 112 mcg Omeprazole [PriLOSEC] 20 mg PO QDAY 04/27/13 11/26/18 04/26/13 21:30 History mg Sertraline HCl 100 mg PO QDAY 04/27/13 11/26/18 04/26/13 21:00 History 100mg ALBUTEROL Inhaler (OR & NICU) 2 puff IH QID PRN 11/26/18 11/26/18 Unknown History [Proair] Cetirizine HCl [Zyrtec 10mg tab] 10 mg PO QDAY 11/26/18 11/26/18 Unknown History Cholecalciferol Vit D3 [Vitamin D3 1,000 unit PO QDAY 11/26/18 11/26/18 Unknown History 1,000 UNIT TAB] EPINEPHrine [Epipen 2-Jonathan] 1 syr IM PRN PRN 11/26/18 11/26/18 Unknown History Fluticasone [Flonase] 1 spray NS QDAY 11/26/18 11/26/18 Unknown History Meloxicam [Mobic] 15 mg PO DAILY 11/26/18 11/26/18 Unknown History Nitroglycerin [Nitrostat] 0.4 mg SL Q5M PRN 11/26/18 11/26/18 Unknown History Active Meds: Active Medications Acetaminophen (Tylenol) 650 mg PO Q4H PRN PRN Reason: Pain MILD(1-3)/Fever >100.5/WALLACE Acetaminophen/Codeine Phosphate (Tylenol #3) 1 tab PO Q6H PRN PRN Reason: Pain, Moderate (4-6) Last Admin: 11/26/18 22:15 Dose: 1 tab Documented by: Albuterol (Proventil) 2.5 mg IH Q4HRT PRN PRN Reason: Shortness Of Breath Amlodipine Besylate (Norvasc) 5 mg PO QDAY [facility] Aspirin (Baby Aspirin) 81 mg PO QDAY [facility] Atorvastatin Calcium (Lipitor) 40 mg PO QHS [facility] Cholecalciferol (Vitamin D3) 1,000 unit PO QDAY [facility] Last Admin: 11/27/18 11:46 Dose: 1,000 unit Documented by: Famotidine (Pepcid) 20 mg PO BID [facility] Last Admin: 11/27/18 11:47 Dose: 20 mg Documented by: Fluticasone Propionate (Flonase) 50 mcg NS QDAY [facility] Last Admin: 11/27/18 11:45 Dose: 50 mcg Documented by: Hydromorphone HCl (Dilaudid) 0.5 mg IV Q3H PRN PRN Reason: Pain , Severe (7-10) Ibuprofen (Ibuprofen) 600 mg PO Q6H PRN PRN Reason: Pain, Mild (1-3) Isosorbide Mononitrate (Imdur) 30 mg PO QDAY [facility] Last Admin: 11/27/18 11:49 Dose: Not Given Documented by: Levothyroxine Sodium (Synthroid) 112 mcg PO DAILY@0600 [facility] Last Admin: 11/27/18 05:27 Dose: 112 mcg Documented by: Loratadine (Claritin) 10 mg PO DAILY [facility] Last Admin: 11/27/18 11:46 Dose: 10 mg Documented by: Meloxicam (Mobic) 15 mg PO DAILY [facility] Last Admin: 11/27/18 11:46 Dose: 15 mg Documented by: Ondansetron HCl (Zofran) 4 mg IV Q8H PRN PRN Reason: Nausea And Vomiting Pantoprazole Sodium (Protonix) 20 mg PO QDAY [facility] Last Admin: 11/27/18 11:50 Dose: 20 mg Documented by: Sertraline HCl (Zoloft) 100 mg PO QDAY [facility] Last Admin: 11/27/18 11:46 Dose: 100 mg Documented by: Sodium Chloride (Sodium Chloride Flush Syringe 10 Ml) 10 ml IV BID [facility] Last Admin: 11/27/18 11:48 Dose: 10 ml Documented by: Sodium Chloride (Sodium Chloride Flush Syringe 10 Ml) 10 ml IV PRN PRN PRN Reason: LINE FLUSH Review of Systems Neurological: change in speech Physical Examination - Vital Signs Vital Signs: Vital Signs Pulse Ox 100 11/26/18 14:48 - Constitutional General appearance: comfortable - EENT EENT: Present: PERRL, mucous membranes moist - Respiratory Respiratory: Present: lungs clear - Cardiovascular Cardiovascular: Present: regular rate - Integumentary Integumentary: Present: normal - Neurologic Cranial nerve examination: PERRL, EOMI, V1/V2/V3 grossly intact, face symmetric, tongue midline Motor examination - right side: 5/5: biceps, triceps, wrist flexion, wrist extension, artificial stone applicator, hip flexors, knee extensors, dorsiflexion, toe extension (EHL), plantarflexion Motor examination - left side: 5/5: biceps, triceps, wrist flexion, wrist extension, artificial stone applicator, hip flexors, knee extensors, dorsiflexion, toe extension (EHL), plantarflexion Reflexes: 1+: ankle, bicep, knee, tricep - Psychiatric Psychiatric: Present: mood/affect appropriate Results - Laboratory Findings CBC and BMP: 11/26/18 15:28 11/26/18 15:28 Abnormal Lab Findings: Abnormal Labs 11/26/18 11/26/18 14:34 15:28 Rock % (Auto) 8.2 H Baso % (Auto) 2.2 H POC Glucose 69 L - Diagnostic Findings Additional findings: MRI MRA brain WNL Assessment and Plan This is a 68 YO F with TIA. REcommend: MRI/a, dopplers all reviewed. Echo pending A1C and LDL, aspirin 81 mg and statin. PT with ulcer in the past and takes Meloxicam daily. Thinks the Plavix load int he ED dropped her BP and is concerned about taking that. PT/OT Continue care for any medical issues as you are doing Follow up with PCP outpatient POC discussed with pt and family at bedside.
[2018-11-28 05:32] LABS: Basophils % (Auto) 0.6 % (0.0-1.8); Eosinophils # (Auto) 0.2 K/mm3 (0.0-0.4); Eosinophils % (Auto) 2.9 % (0.0-4.3); Hematocrit 33.6 % (30.3-42.9); Hemoglobin 11.2 gm/dl (10.1-14.3); Lymphocytes # (Auto) 2.2 K/mm3 (1.2-5.4); Lymphocytes % (Auto) 35.8 % (13.4-35.0); Mean Corpuscular HGB Conc 33 % (30-34); Mean Corpuscular Volume 88 fl (79-97); Monocytes # (Auto) 0.6 K/mm3 (0.0-0.8); Monocytes % (Auto) 10.3 % (0.0-7.3); Platelet Count 320 K/mm3 (140-440); Red Blood Count 3.84 M/mm3 (3.65-5.03); Red Cell Distribution Width 14.1 % (13.2-15.2)
[2018-11-28 05:35] LABS: Alanine Aminotransferase 10 units/L (7-56); Albumin 3.3 g/dL (3.9-5); BUN/Creatinine Ratio 17; Blood Urea Nitrogen 15 mg/dL (7-17); Calcium 8.5 mg/dL (8.4-10.2); Chol/HDL Ratio 2.42 %; HDL Cholesterol 66 mg/dL (40-59); Hemolysis Index 9; LDL Cholesterol,Direct 93 mg/dL (50-130)
[2018-11-28] MEDS: SYNTHROID PO SCH (06:05)
[2018-11-28] MEDS: PEPCID PO SCH (09:54)
[2018-11-28] MEDS: PROTONIX PO SCH (09:54)
[2018-11-28] MEDS: VITAMIN D3 PO SCH (09:55)
[2018-11-28] MEDS: FLONASE NS SCH (09:55)
[2018-11-28] MEDS: CLARITIN PO SCH (09:55)
[2018-11-28] MEDS: ZOLOFT PO SCH (09:55)
[2018-11-28 09:56] VITALS: BP 122/61
[2018-11-28] MEDS: IMDUR PO SCH (09:56)
[2018-11-28] MEDS: SODIUM CHLORIDE FLUSH SYRINGE 10 ML IV SCH (09:57)
[2018-11-28] MEDS: MOBIC PO SCH (09:57)
[2018-11-28] MEDS ORDERED: BABY ASPIRIN PO SCH (10:00)
[2018-11-28] MEDS ORDERED: NORVASC PO SCH ×2 (10:00)
[2018-11-28] MEDS ORDERED: ASPIRIN PO SCH (10:00)
--- NOTE | 2018-11-28 11:28 | Discharge Summary ---
Providers - Providers Date of Admission: 11/26/18 16:27 Date of discharge: 11/28/18 Attending physician: GRACIE RAMOS 11/27/18 00:25 Consult to Physician [CONS] Routine Comment: Consulting Provider: YUE BROWNLEE Physician Instructions: Reason For Exam: Chest pain 11/27/18 00:26 Occupational Therapy Evaluate and Treat [CONS] Routine Comment: Reason For Exam: Neuro deficits Physical Therapy Evaluation and Treat [CONS] Routine Comment: Reason For Exam: Neuro deficits 11/27/18 00:28 Consult to Physician [CONS] Routine Comment: Consulting Provider: SELMA MOTT Physician Instructions: Reason For Exam: TIA [facility] Reason for admission: Slurred speech and headache of one day duration Condition: Fair Pertinent studies: CT head without contrast; no acute abnormality noted Carotid Doppler no hemodynamically significant stenosis MRA; no significant abnormality noted MRI; no acute abnormality Echocardiogram; 55-60%, no shunt Hospital course: 68-year-old -N[place]alese female patient with multiple medical problems as mentioned below who was admitted through emergency room with history of slurred speech and headache on the day of admission, symptoms significantly improved at the time of presentation Patient was not a candidate for TPA, admitted managed appropriately, had extensive neuro workup which was negative Evaluated by neurologist, acute CVA ruled out, Possible TIA Patient is also morbidly obese with BMI of 51, was counseled dietary modification weight reduction when medically stable Today patient is comfortable in no new complaints vital signs stable physical examination unremarkable Cleared by neurology for discharge and advised outpatient neuro follow up per scheduled Stable at discharge Discharge diagnosis; --TIA (transient ischemic attack) Current Visit: Yes Status: Acute Workup so far; negative, acute CVA ruled out CT head without contrast; no acute abnormality noted Carotid Doppler no hemodynamically significant stenosis MRA; no significant abnormality noted MRI; no acute abnormality Echocardiogram; 55-60%, no shunt Aspirin and Plavix Physical therapy occupational therapy -- Hypertension Current Visit: Yes Status: Chronic Moderate control, continue current antihypertensives When necessary medications --Headache Current Visit: Yes Status: Acute Symptomatic management, neuro workup negative Following neurology evaluation and recommendations -- Nausea & vomiting Current Visit: Yes Status: Acute Antiemetics and supportive care -- Exertional dyspnea Current Visit: Yes Status: Chronic -- JAVIER (obstructive sleep apnea) Current Visit: Yes Status: Chronic --Normal coronary arteries Current Visit: Yes Status: Chronic -- Morbid obesity BMI 51 Current Visit: Yes Status: Chronic Advised diet modification and exercise as tolerated and weight reduction when medically stable Patient is stable at discharge Disposition: MICHELLE-Mike TO HOME OR SELFCARE Time spent for discharge: 32 min Core Measure Documentation - Palliative Care Palliative Care/ Comfort Measures: Not Applicable - Core Measures Any of the following diagnoses?: none Exam - Constitutional Vitals: Temp Pulse Resp BP Pulse Ox 98.4 F 68 18 122/61 99 11/27/18 19:47 11/28/18 09:56 11/28/18 08:00 11/28/18 09:56 11/28/18 08:00 General appearance: Present: no acute distress, well-nourished, obese (morbidly obese) - EENT Eyes: Present: PERRL, EOM intact - Neck Neck: Present: supple, normal ROM - Respiratory Respiratory effort: normal Respiratory: bilateral: diminished, negative: rales, rhonchi, wheezing - Cardiovascular Rhythm: regular Heart Sounds: Present: S1 & S2 - Extremities Extremities: no ischemia, No edema - Abdominal General gastrointestinal: Present: soft, non-tender, non-distended, normal bowel sounds - Integumentary Integumentary: Present: clear, warm - Musculoskeletal Musculoskeletal: strength equal bilaterally - Psychiatric Psychiatric: appropriate mood/affect, cooperative - Neurologic Neurologic: CNII-XII intact, moves all extremities Plan Activity: advance as tolerated Diet: other (cardiac diet) Follow up with: MARY BETH NUNN MD [Primary Care Provider] - 3-5 Days BROA WOLF MD [Staff Physician] - 7 Days Prescriptions: RX: Aspirin [Aspirin BABY CHEW TAB] 81 mg PO QDAY #30 tab.chew RX: ISOSORBIDE MONOnitrate [Imdur ER] 30 mg PO QDAY #30 tablet RX: AtorvaSTATin [Lipitor] 40 mg PO QHS #30 tablet
--- NOTE | 2018-11-28 11:47 | Progress Note ---
Assessment and Plan Stable cardiac status. Follow-up at my office in 1 to 2 weeks. - Patient Problems (1) TIA (transient ischemic attack) Current Visit: Yes Status: Acute (2) Hypertension Current Visit: Yes Status: Chronic Qualifiers: Hypertension type: essential hypertension Qualified Code(s): I10 - Essential (primary) hypertension (3) Headache Current Visit: Yes Status: Acute (4) Nausea & vomiting Current Visit: Yes Status: Acute (5) Exertional dyspnea Current Visit: Yes Status: Chronic (6) JAVIER (obstructive sleep apnea) Current Visit: Yes Status: Chronic (7) Normal coronary arteries Current Visit: Yes Status: Chronic (8) Morbid obesity Current Visit: Yes Status: Chronic Subjective Date of service: 11/28/18 Principal diagnosis: TIA, WALLACE, N/V, HTN, Interval history: No complaints. No neurologic symptoms. Objective Vital Signs Temp Pulse Pulse Pulse Pulse Resp BP 11/28/18 09:56 68 122/61 11/28/18 09:55 68 122/61 11/28/18 08:00 68 68 68 18 11/28/18 00:00 68 11/27/18 20:00 65 65 65 18 11/27/18 19:47 98.4 F 78 18 128/67 11/27/18 19:16 11/27/18 16:02 97.9 F 62 18 123/52 11/27/18 14:38 11/27/18 12:51 97.7 F 63 16 130/61 11/27/18 12:00 55 L 11/27/18 11:50 76 90/50 11/27/18 11:49 76 90/50 Pulse Ox 11/28/18 09:56 11/28/18 09:55 11/28/18 08:00 99 11/28/18 00:00 11/27/18 20:00 99 11/27/18 19:47 98 11/27/18 19:16 100 11/27/18 16:02 97 11/27/18 14:38 98 11/27/18 12:51 98 11/27/18 12:00 11/27/18 11:50 11/27/18 11:49 - Physical Examination General: No Apparent Distress HEENT: Positive: EOMI, Normocephaly, Mucus Membranes Moist Neck: Positive: neck supple, trachea midline Cardiac: Positive: Reg Rate and Rhythm, S1/S2 Lungs: Positive: clear to auscultation Neuro: Positive: Grossly Intact Abdomen: Positive: Soft, Active Bowel Sounds. Negative: Tender Skin: Positive: Clear. Negative: Rash Musculoskeletal: Normal Range of Motion Extremities: Present: normal. Absent: edema - Labs and Meds Cardiac Enzymes 11/28/18 Range/Units 04:51 AST 12 (5-40) units/L Lipids 11/28/18 Range/Units 04:51 Triglycerides 52 (2-149) mg/dL Cholesterol 160 (50-199) mg/dL HDL Cholesterol 66 H (40-59) mg/dL Cholesterol/HDL Ratio 2.42 % CBC 11/28/18 Range/Units 04:51 WBC 6.2 (4.5-11.0) K/mm3 RBC 3.84 (3.65-5.03) M/mm3 Hgb 11.2 (10.1-14.3) gm/dl Hct 33.6 (30.3-42.9) % Plt Count 320 (140-440) K/mm3 Lymph # 2.2 (1.2-5.4) K/mm3 [place] # 0.6 (0.0-0.8) K/mm3 Eos # 0.2 (0.0-0.4) K/mm3 Baso # 0.0 (0.0-0.1) K/mm3 Comprehensive Metabolic Panel 11/28/18 Range/Units 04:51 Sodium 138 (137-145) mmol/L Potassium 3.8 (3.6-5.0) mmol/L Chloride 102.7 (98-107) mmol/L Carbon Dioxide 25 (22-30) mmol/L BUN 15 (7-17) mg/dL Creatinine 0.9 (0.7-1.2) mg/dL Glucose 98 (65-100) mg/dL Calcium 8.5 (8.4-10.2) mg/dL AST 12 (5-40) units/L ALT 10 (7-56) units/L Alkaline Phosphatase 104 (35-129) units/L Total Protein 6.9 (6.3-8.2) g/dL Albumin 3.3 L (3.9-5) g/dL - Imaging and Cardiology EKG: pending
== END 2018-11-28 13:05 | disposition home or self-care (01) | DRG 69 ==
LOC: ED 14:23 → 4A 16:27
PROVIDERS: ADMIT Internal Medicine; ATTEND Internal Medicine
DX: G45.9 Transient cerebral ischemic attack, unspecified (principal); Z68.43 Body mass index [BMI] 50.0-59.9, adult; I10 Essential (primary) hypertension; J44.9 Chronic obstructive pulmonary disease, unspecified; J30.9 Allergic rhinitis, unspecified; G47.33 Obstructive sleep apnea (adult) (pediatric); E66.01 Morbid (severe) obesity due to excess calories; E78.5 Hyperlipidemia, unspecified; I25.10 Atherosclerotic heart disease of native coronary artery without angina pectoris; K21.9 Gastro-esophageal reflux disease without esophagitis; Z90.49 Acquired absence of other specified parts of digestive tract; Z82.49 Family history of ischemic heart disease and other diseases of the circulatory system; Z88.8 Allergy status to other drugs, medicaments and biological substances; Z88.6 Allergy status to analgesic agent; Z91.030 Bee allergy status; Z79.51 Long term (current) use of inhaled steroids; Z79.899 Other long term (current) drug therapy; Z79.82 Long term (current) use of aspirin
CPT/HCPCS: 36415; 70450; 70544; 70551; 80053; 80061; 80076; 81001; 82550; 82553; 82962; 83036; 84484; 85025; 85610; 85670; 85730; 93005; 93010; 93306; 93880; G0378; A9270-GY; J1170; J7050

== ENCOUNTER 2021-04-12 10:52 | Outpatient (CLI) | payer MEDICARE, OTHER ==
[2021-04-12 11:47] LABS: Blood Urea Nitrogen 14 mg/dL (7-17)
--- NOTE | 2021-04-12 13:43 | Cat Scan Report ---
CT ABDOMEN AND PELVIS WITH CONTRAST INDICATION: EPIGASTRIC PAIN,ABDOMINAL BLOATING CONTRAST: 100 cc Omnipaque 300 IV COMPARISON: None available. All CT scans at this location are performed using CT dose reduction for ALARA by means of automated e xposure control. NOTE: Resolution is decreased and artifact is introduced by the patient's size. FINDINGS: Lung bases are clear. No pneumoperitoneum is seen. No free fluid is noted. No lymphadenopat hy is seen. No inflammatory changes are noted. No significant abdominal wall herniation is seen. Liver shows mild fatty infiltration without obvious focal lesion. Liver is mildly enlarged and has a length of 18 cm. I see no abnormalities of the spleen, pancreas, bile ducts, adrenals, or kidneys. Ga llbladder has been removed. No urinary or bowel obstructive changes are seen. Appendix appears within normal limits. Pelvic masses are seen. Mild colonic diverticulosis is noted without evidence of dive rticulitis. IMPRESSION: No acute abnormalities are seen Signer Name: Ilya Trivedi MD Signed: 04/12/2021 1:39 PM Workstation Name: [id number]
--- NOTE | 2021-04-13 10:02 | Mammography Report ---
DIGITAL SCREENING MAMMOGRAM WITH CAD, 04/12/2021 CLINICAL INFORMATION / INDICATION: Routine screening mammography. TECHNIQUE: Digital bilateral 2D mammography was obtained in the craniocaudal and mediolateral obliqu e projections. This examination was interpreted with the benefit of Computer-Aided Detection analysis . COMPARISON: 04/24/2018, 11/21/2015 FINDINGS: Breast Density: There are scattered areas of fibroglandular density. No dominant mass, suspicious calcifications, or architectural distortion in either breast. IMPRESSION: No mammographic evidence of malignancy. Follow up recommendation: Routine yearly BI-RADS Category 1: Negative. A "normal" or negative report should not discourage follow up or biopsy of a clinically significant f inding. A written summary of these findings will be mailed to the patient. The patient will be entered into a mammography reporting system which will generate a reminder letter for the patient's next appointmen t at the appropriate interval. The [employer] recommends yearly mammograms starting at age 40 and continuing as l jennifer as a woman is in good health. Breast MRI is recommended for women with an approximate 20-25% or greater lifetime risk of breast cancer, including women with a strong family history of breast or ova ana cancer or who have been treated for Hodgkin's disease. Signer Name: Raman Marin MD Signed: 04/13/2021 9:56 AM Workstation Name: [id number]
== END 2021-04-12 10:53 | disposition home or self-care (01) ==
LOC: CT 10:52
PROVIDERS: ATTEND Internal Medicine Gastroenterology
DX: Z12.31 Encounter for screening mammogram for malignant neoplasm of breast (principal); R14.0 Abdominal distension (gaseous); K76.0 Fatty (change of) liver, not elsewhere classified; R16.0 Hepatomegaly, not elsewhere classified; K57.30 Diverticulosis of large intestine without perforation or abscess without bleeding; Z90.49 Acquired absence of other specified parts of digestive tract
CPT/HCPCS: 36415; 74177; 77067; 82565; 84520; Q9967